=== PATIENT | female | born 1955 | race Caucasian/White ===

== ENCOUNTER 2017-07-11 13:14 | Emergency (ER) | payer MEDICAID, OTHER ==
[~2017-07-11] VITALS: Ht 165.1 cm; Wt 59.0 kg
[2017-07-11 14:30] LABS: Basophils # (auto) 0.1 uL; Basophils % (auto) 1.4 % (0.0-2.0); Eosinophils # (auto) 0.1 uL; Eosinophils % (auto) 2.1 % (0.0-7.0); Hematocrit 36.6 % (36.0-46.0); Hemoglobin 11.8 g/dL (12.2-16.2); Mean Corpuscular Hemoglobin 27.5 pg (28.0-32.0); Mean Corpuscular Hgb Conc. 32.3 g/dL (32.0-36.0); Mean Corpuscular Volume 85.1 fL (80.0-100.0); Monocytes # (auto) 0.5 uL; Monocytes % (auto) 7.3 % (0.0-12.0); Neutrophils # (auto) 3.9 uL; Neutrophils % (auto) 58.2 % (37.0-80.0); Nucleated Red Blood Cells % 0.1 %; Platelet Count (auto) 259 10^3/uL (140-450); Red Blood Cells 4.31 10^6/uL (4.0-5.20); Red Cell Distribution Width 13.6 % (11.8-14.3); White Blood Cell 6.6 10^3/uL (4.4-10.8)
[2017-07-11 14:39] LABS: Alanine Aminotransferase 51 U/L (13-56); Albumin 2.9 g/dL (3.4-5.0); Anion Gap 8 (5-15); Aspartate Aminotransferase 38 U/L (15-37); Blood Urea Nitrogen 11 mg/dL (7-18); Calcium 8.2 mg/dL (8.5-10.1); Carbon Dioxide 24 mmol/L (21-32); Chloride 107 mmol/L (98-107); GFR African American 73 mL/min; GFR Non-African American 60 mL/min; Glucose 81 mg/dL (74-106); Magnesium 2.1 mg/dL (1.6-2.6); Potassium 4.4 mmol/L (3.5-5.1); Sodium 139 mmol/L (136-145)
[2017-07-11 14:44] LABS: Alkaline Phosphatase 89 U/L (45-117); Bilirubin, Total 0.3 mg/dL (0.2-1.0); Total Protein 7.1 g/dL (6.4-8.2)
[2017-07-11 16:57] VITALS: BP 110/78
== END 2017-07-11 23:00 | disposition left against medical advice (07) ==
LOC: ER 13:14
DX: R06.02 Shortness of breath (principal); Z53.21 Procedure and treatment not carried out due to patient leaving prior to being seen by health care provider
CPT/HCPCS: 36415; 71046; 80053; 83735; 84484; 85025; 93005

== ENCOUNTER 2017-09-15 21:31 | Inpatient (IN) | payer MEDICAID ==
[~2017-09-15] VITALS: Ht 165.1 cm; Wt 63.5 kg
[2017-09-15 22:51] LABS: Basophils # (auto) 0 uL; Basophils % (auto) 0.5 % (0.0-2.0); Eosinophils # (auto) 0.5 uL; Eosinophils % (auto) 5.8 % (0.0-7.0); Hematocrit 35.6 % (36.0-46.0); Hemoglobin 11.5 g/dL (12.2-16.2); Lymphocytes # (auto) 2.2 uL; Mean Corpuscular Hemoglobin 28.4 pg (28.0-32.0); Mean Corpuscular Hgb Conc. 32.3 g/dL (32.0-36.0); Mean Corpuscular Volume 87.8 fL (80.0-100.0); Monocytes # (auto) 0.9 uL; Monocytes % (auto) 10.3 % (0.0-12.0); Neutrophils # (auto) 4.6 uL; Neutrophils % (auto) 56.4 % (37.0-80.0); Platelet Count (auto) 259 10^3/uL (140-450); Red Blood Cells 4.06 10^6/uL (4.0-5.20); Red Cell Distribution Width 14.3 % (11.8-14.3); White Blood Cell 8.2 10^3/uL (4.4-10.8)
[2017-09-15 23:05] LABS: INR 1.54 (0.9-1.15); Partial Thromboplastin Time 34.5 sec (23.78-33.04); Prothrombin Time 16.1 sec (9.27-12.13)
[2017-09-15 23:11] LABS: Alanine Aminotransferase 15 U/L (13-56); Albumin 3.2 g/dL (3.4-5.0); Anion Gap 11 (5-15); Aspartate Aminotransferase 17 U/L (15-37); BUN/Creatinine Ratio 12.8; Blood Urea Nitrogen 22 mg/dL (7-18); Calcium 8.6 mg/dL (8.5-10.1); Carbon Dioxide 24 mmol/L (21-32); Chloride 100 mmol/L (98-107); GFR African American 39 mL/min; GFR Non-African American 32 mL/min; Glucose 100 mg/dL (74-106); Magnesium 2.2 mg/dL (1.6-2.6); Potassium 4.3 mmol/L (3.5-5.1); Sodium 135 mmol/L (136-145)
[2017-09-15 23:15] LABS: Alkaline Phosphatase 81 U/L (45-117); Bilirubin, Total 0.2 mg/dL (0.2-1.0)
[2017-09-15 23:44] LABS: Urine Bacteria NONE SEEN /hpf (None Seen); Urine Blood Negative /uL (Negative); Urine Hyaline Cast MOD /lpf (0 - 2); Urine Specific Gravity 1.009 (1.001-1.035); Urine WBC 5 /hpf (0 - 5); Urine WBC Clumps PRESENT /hpf (None Seen)
[2017-09-16] MEDS ORDERED: VANCOMYCIN 1GM/250ML 250 ML IV ONE (01:45)
[2017-09-16] MEDS ORDERED: ONDANSETRON HCL 4 MG/2 ML VIAL IV ONE (01:45)
[2017-09-16] MEDS ORDERED: cefTRIAXone 1GM/10ml IVPUSH 10 ML IV ONE (01:45)
[2017-09-16] MEDS ORDERED: NALBUPHINE HCL 10 MG/1ml INJECTION IV ONE (01:45)
[2017-09-16] MEDS ORDERED: NITROGLYCERIN 0.4 MG SL TAB SL PRN (02:15)
[2017-09-16] MEDS ORDERED: VANCOMYCIN PER PHARMACY 0 MG IV SCH (02:15)
[2017-09-16] MEDS ORDERED: ONDANSETRON HCL 4 MG/2 ML VIAL IV PRN (02:15)
[2017-09-16] MEDS ORDERED: ACETAMINOPHEN 325 MG TAB PO PRN (02:15)
[2017-09-16] MEDS ORDERED: TEMAZEPAM 15 MG CAP PO PRN (02:15)
[2017-09-16] MEDS ORDERED: MORPHINE SULF INJ 2 MG/ML SYRINGE 1ML IV PRN (02:15)
[2017-09-16] MEDS ORDERED: HYDROcodone-ACET 5/325MG TAB PO PRN (02:15)
[2017-09-16] MEDS ORDERED: SODIUM CHLORIDE 0.9% 1,000 ML IV ONE (07:30)
[2017-09-16] MEDS: PANTOPRAZOLE 40 MG TAB PO SCH (09:51)
[2017-09-16] MEDS: AMIODARONE HCL 200 MG TAB PO SCH (09:52)
[2017-09-16] MEDS: cefTRIAXone 1GM/10ml IVPUSH 10 ML IV SCH (09:52)
[2017-09-16] MEDS: FUROSEMIDE 40 MG TAB PO SCH (09:52)
[2017-09-16] MEDS: CARVEDILOL 3.125 MG TAB PO SCH ×2 (09:52→22:00)
[2017-09-16] MEDS ORDERED: WARFARIN SODIUM 5 MG TAB PO ONE (17:00)
[2017-09-16 18:01] VITALS: BP 84/50
[2017-09-16] MEDS: HYDROcodone-ACET 5/325MG TAB PO PRN (20:04)
[2017-09-16 21:30] VITALS: BP 91/50
[2017-09-16] MEDS: ATORVASTATIN 20 MG TAB PO SCH (22:18)
[2017-09-17] MEDS: HYDROcodone-ACET 5/325MG TAB PO PRN ×3 (03:21→16:34)
[2017-09-17 04:55] VITALS: BP 101/61
[2017-09-17] MEDS ORDERED: AMIO200T33 PO (06:14)
[2017-09-17] MEDS ORDERED: POTA20TA53 PO (06:21)
[2017-09-17] MEDS ORDERED: FURO40TA4 PO (06:21)
[2017-09-17] MEDS ORDERED: LEVO-28 PO (06:21)
[2017-09-17] MEDS ORDERED: ATOR20TA50 PO (06:21)
[2017-09-17] MEDS ORDERED: LISI2.5T47 PO (06:21)
[2017-09-17] MEDS ORDERED: CARV3.1240 PO (06:21)
[2017-09-17] MEDS ORDERED: GABA300C10 PO (06:21)
[2017-09-17] MEDS ORDERED: PANT40TA2 PO (06:21)
[2017-09-17 06:38] LABS: Basophils # (auto) 0.1 uL; Basophils % (auto) 1.4 % (0.0-2.0); Eosinophils # (auto) 0.4 uL; Eosinophils % (auto) 7.4 % (0.0-7.0); Hematocrit 35.2 % (36.0-46.0); Hemoglobin 11.9 g/dL (12.2-16.2); Lymphocytes # (auto) 1.4 uL; Lymphocytes % (auto) 24.3 % (10.0-50.0); Mean Corpuscular Hemoglobin 29.6 pg (28.0-32.0); Mean Corpuscular Hgb Conc. 33.7 g/dL (32.0-36.0); Monocytes # (auto) 0.4 uL; Monocytes % (auto) 7.9 % (0.0-12.0); Neutrophils # (auto) 3.3 uL; Platelet Count (auto) 211 10^3/uL (140-450); Red Cell Distribution Width 14.2 % (11.8-14.3); White Blood Cell 5.6 10^3/uL (4.4-10.8)
[2017-09-17 06:50] LABS: INR 1.86 (0.9-1.15); Prothrombin Time 19.2 sec (9.27-12.13)
[2017-09-17 07:11] LABS: Albumin 2.7 g/dL (3.4-5.0); BUN/Creatinine Ratio 18.1; Bilirubin, Total 0.3 mg/dL (0.2-1.0); Calcium 9.1 mg/dL (8.5-10.1); Potassium 4.1 mmol/L (3.5-5.1); Total Protein 7.1 g/dL (6.4-8.2)
[2017-09-17 08:56] VITALS: BP 98/55
[2017-09-17] MEDS: cefTRIAXone 1GM/10ml IVPUSH 10 ML IV SCH (09:24)
[2017-09-17] MEDS: PANTOPRAZOLE 40 MG TAB PO SCH (09:24)
[2017-09-17] MEDS: AMIODARONE HCL 200 MG TAB PO SCH (09:25)
[2017-09-17] MEDS: CARVEDILOL 3.125 MG TAB PO SCH ×2 (09:28→22:00)
[2017-09-17] MEDS: FUROSEMIDE 40 MG TAB PO SCH (09:28)
[2017-09-17 13:03] VITALS: BP 112/68
[2017-09-17] MEDS ORDERED: WARFARIN SODIUM 5 MG TAB PO ONE (17:00)
[2017-09-17 17:21] VITALS: BP 95/57
[2017-09-17] MEDS: VANCOMYCIN 1GM/250ML 250 ML IV SCH (20:40)
[2017-09-17 21:45] VITALS: BP 98/58
[2017-09-17] MEDS: ATORVASTATIN 20 MG TAB PO SCH (22:10)
[2017-09-18] MEDS: HYDROcodone-ACET 5/325MG TAB PO PRN ×4 (00:22→19:49)
[2017-09-18 05:00] VITALS: BP 108/69
[2017-09-18 06:49] LABS: Basophils # (auto) 0.1 uL; Basophils % (auto) 2.1 % (0.0-2.0); Eosinophils # (auto) 0.4 uL; Eosinophils % (auto) 8.3 % (0.0-7.0); Hemoglobin 11.8 g/dL (12.2-16.2); Lymphocytes # (auto) 1.6 uL; Lymphocytes % (auto) 31.5 % (10.0-50.0); Mean Corpuscular Hemoglobin 29.7 pg (28.0-32.0); Mean Corpuscular Hgb Conc. 33.8 g/dL (32.0-36.0); Mean Corpuscular Volume 87.9 fL (80.0-100.0); Monocytes # (auto) 0.5 uL; Monocytes % (auto) 9.8 % (0.0-12.0); Neutrophils # (auto) 2.5 uL; Neutrophils % (auto) 48.3 % (37.0-80.0); Nucleated Red Blood Cells % 0.1 %; Platelet Count (auto) 207 10^3/uL (140-450); Red Blood Cells 3.98 10^6/uL (4.0-5.20); Red Cell Distribution Width 14.2 % (11.8-14.3); White Blood Cell 5.1 10^3/uL (4.4-10.8)
[2017-09-18 07:44] LABS: INR 1.93 (0.9-1.15); Prothrombin Time 19.9 sec (9.27-12.13)
[2017-09-18 08:00] VITALS: BP 114/72
[2017-09-18] MEDS: PANTOPRAZOLE 40 MG TAB PO SCH (08:41)
[2017-09-18] MEDS: cefTRIAXone 1GM/10ml IVPUSH 10 ML IV SCH (08:42)
[2017-09-18 09:00] VITALS: BP 114/72
[2017-09-18] MEDS: FUROSEMIDE 40 MG TAB PO SCH (10:00)
[2017-09-18] MEDS: CARVEDILOL 3.125 MG TAB PO SCH ×2 (11:09→21:57)
[2017-09-18] MEDS: AMIODARONE HCL 200 MG TAB PO SCH (11:09)
[2017-09-18] MEDS ORDERED: SENNA 8.6 MG TAB PO PRN (11:15)
[2017-09-18 13:00] VITALS: BP 98/59
[2017-09-18] MEDS: VANCOMYCIN 1GM/250ML 250 ML IV SCH (13:53)
[2017-09-18] MEDS: Glucerna Carbsteady SHAKE Vanilla 8oz PO SCH ×2 (13:54→18:00)
[2017-09-18 17:00] VITALS: BP 88/57
[2017-09-18] MEDS ORDERED: WARFARIN SODIUM 5 MG TAB PO ONE (17:00)
[2017-09-18] MEDS: Pro-Stat SF 30ml Vanilla PO SCH (18:00)
[2017-09-18] MEDS: DOCUSATE SOD 100 MG CAP PO SCH (21:57)
[2017-09-18] MEDS: ATORVASTATIN 20 MG TAB PO SCH (21:57)
[2017-09-18 22:00] VITALS: BP 101/59
[2017-09-19] MEDS: HYDROcodone-ACET 5/325MG TAB PO PRN ×5 (04:08→23:56)
[2017-09-19 05:00] VITALS: BP 105/65
[2017-09-19 06:05] LABS: Basophils # (auto) 0.1 uL; Basophils % (auto) 1.6 % (0.0-2.0); Eosinophils # (auto) 0.4 uL; Eosinophils % (auto) 7.4 % (0.0-7.0); Hemoglobin 11.4 g/dL (12.2-16.2); Lymphocytes # (auto) 1.5 uL; Lymphocytes % (auto) 30.8 % (10.0-50.0); Mean Corpuscular Hemoglobin 29.3 pg (28.0-32.0); Mean Corpuscular Hgb Conc. 33.5 g/dL (32.0-36.0); Mean Corpuscular Volume 87.5 fL (80.0-100.0); Monocytes # (auto) 0.5 uL; Monocytes % (auto) 10.9 % (0.0-12.0); Neutrophils # (auto) 2.4 uL; Neutrophils % (auto) 49.3 % (37.0-80.0); Nucleated Red Blood Cells % 0.1 %; Platelet Count (auto) 191 10^3/uL (140-450); Red Blood Cells 3.89 10^6/uL (4.0-5.20); Red Cell Distribution Width 13.8 % (11.8-14.3); White Blood Cell 4.9 10^3/uL (4.4-10.8)
[2017-09-19 06:11] LABS: INR 2.46 (0.9-1.15); Partial Thromboplastin Time 37.3 sec (23.78-33.04)
[2017-09-19 06:24] LABS: BUN/Creatinine Ratio 20.9; Calcium 8.9 mg/dL (8.5-10.1); Magnesium 2.6 mg/dL (1.6-2.6); Potassium 4.2 mmol/L (3.5-5.1)
[2017-09-19 07:45] LABS: BUN/Creatinine Ratio 20.5; Calcium 8.6 mg/dL (8.5-10.1); Potassium 4.4 mmol/L (3.5-5.1)
[2017-09-19 08:00] VITALS: BP 106/64
[2017-09-19] MEDS: VANCOMYCIN 1GM/250ML 250 ML IV SCH (08:00)
[2017-09-19] MEDS: Glucerna Carbsteady SHAKE Vanilla 8oz PO SCH ×3 (08:00→18:48)
[2017-09-19] MEDS: PANTOPRAZOLE 40 MG TAB PO SCH (08:00)
[2017-09-19] MEDS: Pro-Stat SF 30ml Vanilla PO SCH ×2 (08:01→18:49)
[2017-09-19 09:00] VITALS: BP 106/64
[2017-09-19] MEDS: AMIODARONE HCL 200 MG TAB PO SCH (09:20)
[2017-09-19] MEDS: CARVEDILOL 3.125 MG TAB PO SCH ×2 (09:20→23:58)
[2017-09-19] MEDS: DOCUSATE SOD 100 MG CAP PO SCH ×2 (09:20→23:57)
[2017-09-19] MEDS: FUROSEMIDE 40 MG TAB PO SCH (09:21)
[2017-09-19] MEDS: cefTRIAXone 1GM/10ml IVPUSH 10 ML IV SCH (10:16)
[2017-09-19 13:00] VITALS: BP 101/66
[2017-09-19 17:00] VITALS: BP 98/60
[2017-09-19] MEDS ORDERED: WARFARIN SODIUM 2.5 MG TAB PO ONE (17:00)
[2017-09-19 22:00] VITALS: BP 101/51
[2017-09-19] MEDS: ATORVASTATIN 20 MG TAB PO SCH (23:58)
[2017-09-20] MEDS: VANCOMYCIN 1GM/250ML 250 ML IV SCH ×2 (02:32→20:27)
[2017-09-20 04:48] VITALS: BP 94/58
[2017-09-20 07:00] LABS: INR 2.44 (0.9-1.15); Prothrombin Time 24.8 sec (9.27-12.13)
[2017-09-20 08:00] VITALS: BP 123/77
[2017-09-20] MEDS: cefTRIAXone 1GM/10ml IVPUSH 10 ML IV SCH (08:42)
[2017-09-20] MEDS: HYDROcodone-ACET 5/325MG TAB PO PRN ×3 (08:42→20:27)
[2017-09-20] MEDS: Glucerna Carbsteady SHAKE Vanilla 8oz PO SCH ×3 (08:43→18:17)
[2017-09-20] MEDS: Pro-Stat SF 30ml Vanilla PO SCH ×2 (08:43→18:17)
[2017-09-20 09:00] VITALS: BP 123/77
[2017-09-20] MEDS: PANTOPRAZOLE 40 MG TAB PO SCH (09:23)
[2017-09-20] MEDS: FUROSEMIDE 40 MG TAB PO SCH (10:00)
[2017-09-20] MEDS: CARVEDILOL 3.125 MG TAB PO SCH ×2 (10:00→22:00)
[2017-09-20] MEDS: AMIODARONE HCL 200 MG TAB PO SCH (10:27)
[2017-09-20] MEDS: DOCUSATE SOD 100 MG CAP PO SCH ×2 (10:27→22:00)
[2017-09-20 13:00] VITALS: BP 94/53
[2017-09-20] MEDS ORDERED: LIDOCAINE 1% (LOCAL ANESTH.) PF 5ml SDV ID ONE (15:30)
[2017-09-20 17:00] VITALS: BP 99/64
[2017-09-20] MEDS ORDERED: WARFARIN SODIUM 2 MG TAB PO ONE (17:00)
[2017-09-20 21:55] VITALS: BP 94/65
[2017-09-20] MEDS: ATORVASTATIN 20 MG TAB PO SCH (22:00)
[2017-09-20] MEDS: SODIUM CHLOR 0.9% PF (SALINE LOCK) 10ML VIAL/SYR IV SCH (23:32)
[2017-09-21] VITALS (7 sets, daily range): BP systolic 92–113; BP diastolic 62–72
[2017-09-21 07:15] LABS: Basophils # (auto) 0.1 uL; Basophils % (auto) 1.3 % (0.0-2.0); Eosinophils # (auto) 0.4 uL; Eosinophils % (auto) 5.8 % (0.0-7.0); Hematocrit 35.5 % (36.0-46.0); Lymphocytes # (auto) 1.7 uL; Lymphocytes % (auto) 28.2 % (10.0-50.0); Mean Corpuscular Hemoglobin 29.3 pg (28.0-32.0); Mean Corpuscular Hgb Conc. 33.7 g/dL (32.0-36.0); Mean Corpuscular Volume 86.9 fL (80.0-100.0); Monocytes # (auto) 0.4 uL; Monocytes % (auto) 7.2 % (0.0-12.0); Neutrophils # (auto) 3.5 uL; Neutrophils % (auto) 57.5 % (37.0-80.0); Platelet Count (auto) 213 10^3/uL (140-450); Red Blood Cells 4.09 10^6/uL (4.0-5.20); Red Cell Distribution Width 14.3 % (11.8-14.3); White Blood Cell 6.1 10^3/uL (4.4-10.8)
[2017-09-21 07:21] LABS: INR 2.36 (0.9-1.15); Partial Thromboplastin Time 38.1 sec (23.78-33.04); Prothrombin Time 24.1 sec (9.27-12.13)
[2017-09-21 07:41] LABS: BUN/Creatinine Ratio 26.3; Potassium 4.5 mmol/L (3.5-5.1)
[2017-09-21] MEDS: Pro-Stat SF 30ml Vanilla PO SCH ×2 (08:00→17:40)
[2017-09-21] MEDS: Glucerna Carbsteady SHAKE Vanilla 8oz PO SCH ×3 (08:00→17:40)
[2017-09-21] MEDS: PANTOPRAZOLE 40 MG TAB PO SCH (08:51)
[2017-09-21] MEDS: HYDROcodone-ACET 5/325MG TAB PO PRN ×4 (08:59→21:52)
[2017-09-21] MEDS: cefTRIAXone 1GM/10ml IVPUSH 10 ML IV SCH (09:00)
[2017-09-21] MEDS: DOCUSATE SOD 100 MG CAP PO SCH ×2 (10:06→21:52)
[2017-09-21] MEDS: FUROSEMIDE 40 MG TAB PO SCH (10:07)
[2017-09-21] MEDS: CARVEDILOL 3.125 MG TAB PO SCH ×2 (10:07→11:07)
[2017-09-21] MEDS: SODIUM CHLOR 0.9% PF (SALINE LOCK) 10ML VIAL/SYR IV SCH ×2 (10:08→21:55)
[2017-09-21] MEDS: AMIODARONE HCL 200 MG TAB PO SCH (10:08)
[2017-09-21] MEDS: VANCOMYCIN 1GM/250ML 250 ML IV SCH (14:05)
[2017-09-21] MEDS ORDERED: WARFARIN SODIUM 2 MG TAB PO ONE (17:00)
[2017-09-21] MEDS: ATORVASTATIN 20 MG TAB PO SCH (21:52)
[2017-09-22 05:00] VITALS: BP 110/70
[2017-09-22] MEDS: HYDROcodone-ACET 5/325MG TAB PO PRN ×3 (06:35→16:48)
[2017-09-22 07:45] LABS: INR 2.14 (0.9-1.15); Partial Thromboplastin Time 37.8 sec (23.78-33.04); Prothrombin Time 21.9 sec (9.27-12.13)
[2017-09-22 08:00] VITALS: BP 126/70
[2017-09-22] MEDS: Pro-Stat SF 30ml Vanilla PO SCH (08:00)
[2017-09-22] MEDS: Glucerna Carbsteady SHAKE Vanilla 8oz PO SCH ×2 (08:00→12:25)
[2017-09-22 08:14] VITALS: BP 126/70
[2017-09-22] MEDS: VANCOMYCIN 1GM/250ML 250 ML IV SCH (08:23)
[2017-09-22] MEDS ORDERED: PANTOPRAZOLE 40 MG TAB PO SCH (10:00)
[2017-09-22] MEDS: cefTRIAXone 1GM/10ml IVPUSH 10 ML IV SCH (10:00)
[2017-09-22] MEDS: DOCUSATE SOD 100 MG CAP PO SCH (10:00)
[2017-09-22] MEDS: FUROSEMIDE 40 MG TAB PO SCH (10:05)
[2017-09-22] MEDS: SODIUM CHLOR 0.9% PF (SALINE LOCK) 10ML VIAL/SYR IV SCH (10:06)
[2017-09-22] MEDS: AMIODARONE HCL 200 MG TAB PO SCH (10:06)
[2017-09-22] MEDS: CARVEDILOL 3.125 MG TAB PO SCH (10:06)
[2017-09-22] MEDS ORDERED: CALCIUM W/VIT D (600MG/400IU) TAB PO ONE (11:30)
[2017-09-22 11:38] VITALS: BP 110/70
[2017-09-22 16:41] VITALS: BP 101/73
[2017-09-22] MEDS ORDERED: WARFARIN SODIUM 5 MG TAB PO ONE (17:00)
[2017-09-22 19:12] VITALS: BP 101/73
[2017-09-23] MEDS ORDERED: CALCIUM W/VIT D (600MG/400IU) TAB PO SCH (10:00)
== END 2017-09-22 19:48 | disposition home health service (06) | DRG 813 ==
LOC: ER 21:31 → TELE 21:32 → TELE-WESTW 09-16 15:39 → WEST WING 09-21 16:58
PROVIDERS: ADMIT Nurse Practitioner; ATTEND Internal Medicine
DX: T81.31XA Disruption of external operation (surgical) wound, not elsewhere classified, initial encounter (principal); N17.9 Acute kidney failure, unspecified; I42.9 Cardiomyopathy, unspecified; I11.0 Hypertensive heart disease with heart failure; I50.22 Chronic systolic (congestive) heart failure; L03.313 Cellulitis of chest wall; E88.09 Other disorders of plasma-protein metabolism, not elsewhere classified; Y83.8 Other surgical procedures as the cause of abnormal reaction of the patient, or of later complication, without mention of misadventure at the time of the procedure; F17.210 Nicotine dependence, cigarettes, uncomplicated; I25.10 Atherosclerotic heart disease of native coronary artery without angina pectoris; N39.0 Urinary tract infection, site not specified; Z82.49 Family history of ischemic heart disease and other diseases of the circulatory system; Z95.2 Presence of prosthetic heart valve; Z95.1 Presence of aortocoronary bypass graft; Z90.49 Acquired absence of other specified parts of digestive tract; Y92.89 Other specified places as the place of occurrence of the external cause
CPT/HCPCS: 36415; 71045; 71250; 80048; 80053; 80202; 81001; 83605; 83735; 84443; 84484; 85025; 85610; 85730; 87040; 87081; 87205; 93005; 96361; 96365; 96375; J0696; J2405

== ENCOUNTER 2017-10-16 22:02 | Emergency (ER) | payer MEDICAID ==
[~2017-10-16] VITALS: Ht 165.1 cm; Wt 66.2 kg
[~2017-10-16 22:02] MED LIST: AMIO200T33 PO; ATOR20TA50 PO; CARV3.1240 PO; FURO40TA4 PO; GABA300C10 PO; LEVO-28 PO; LISI2.5T47 PO; PANT40TA2 PO; POTA20TA53 PO
[2017-10-16 22:49] VITALS: BP 158/95
[2017-10-16 23:14] LABS: Basophils # (auto) 0.1 uL; Basophils % (auto) 1.1 % (0.0-2.0); Eosinophils # (auto) 0.2 uL; Eosinophils % (auto) 3.2 % (0.0-7.0); Hematocrit 36.7 % (36.0-46.0); Hemoglobin 12.3 g/dL (12.2-16.2); Lymphocytes # (auto) 1.8 uL; Lymphocytes % (auto) 26.7 % (10.0-50.0); Mean Corpuscular Hemoglobin 29.7 pg (28.0-32.0); Mean Corpuscular Hgb Conc. 33.4 g/dL (32.0-36.0); Mean Corpuscular Volume 88.9 fL (80.0-100.0); Monocytes # (auto) 0.6 uL; Monocytes % (auto) 9.1 % (0.0-12.0); Neutrophils # (auto) 4.1 uL; Neutrophils % (auto) 59.9 % (37.0-80.0); Nucleated Red Blood Cells % 0.1 %; Platelet Count (auto) 261 10^3/uL (140-450); Red Blood Cells 4.13 10^6/uL (4.0-5.20); Red Cell Distribution Width 14.2 % (11.8-14.3); White Blood Cell 6.9 10^3/uL (4.4-10.8)
[2017-10-16 23:31] LABS: Alanine Aminotransferase 17 U/L (13-56); Albumin 3.5 g/dL (3.4-5.0); Anion Gap 7 (5-15); Aspartate Aminotransferase 12 U/L (15-37); BUN/Creatinine Ratio 9.8; Blood Urea Nitrogen 11 mg/dL (7-18); Calcium 8.6 mg/dL (8.5-10.1); Carbon Dioxide 26 mmol/L (21-32); Chloride 106 mmol/L (98-107); GFR African American 64 mL/min; GFR Non-African American 53 mL/min; Glucose 90 mg/dL (74-106); Potassium 3.7 mmol/L (3.5-5.1); Sodium 139 mmol/L (136-145)
[2017-10-16 23:35] LABS: Alkaline Phosphatase 74 U/L (45-117); Bilirubin, Total 0.3 mg/dL (0.2-1.0)
== END 2017-10-17 02:52 | disposition left against medical advice (07) ==
LOC: ER 22:02
DX: R07.89 Other chest pain (principal); Z53.21 Procedure and treatment not carried out due to patient leaving prior to being seen by health care provider
CPT/HCPCS: 36415; 71045; 80053; 84484; 85025; 93005